=== PATIENT | female | born 1975 | race Hispanic/Latino ===

== ENCOUNTER 2018-04-30 07:25 | Emergency (ER) | payer OTHER ==
[2018-04-30] MEDS ORDERED: LIDOCAINE HCL 2% VISCOUS 15 ML UDCUP ONE ×2 (08:05→09:47)
[2018-04-30] MEDS ORDERED: MAG HYDROX/AL HYDROX/SIMETH ES 30 ML SUSP UDCUP ONE (08:05)
== END 2018-04-30 14:45 | disposition home or self-care (01) ==
LOC: EDH 07:25
DX: R13.10 Dysphagia, unspecified (principal); F41.9 Anxiety disorder, unspecified
CPT/HCPCS: 70490

== ENCOUNTER 2018-06-26 09:48 | Emergency (ER) | payer OTHER | END 2018-06-26 10:33 | disposition home or self-care (01) | LOC: EDH 09:48 | DX: S23.3XXA Sprain of ligaments of thoracic spine, initial encounter (principal); V49.49XA Driver injured in collision with other motor vehicles in traffic accident, initial encounter; Y93.89 Activity, other specified; Y92.89 Other specified places as the place of occurrence of the external cause; Y99.8 Other external cause status ==